=== PATIENT | female | born 1945 | race Hispanic/Latino ===

== ENCOUNTER 2018-10-03 12:22 | Inpatient (IN) | payer MEDICARE, BC ==
[2018-10-03 12:22] VITALS: BMI 33.0
[2018-10-03] MEDS ORDERED: Piperacillin/Tazobact 3.375 GM in Sodium Chloride 0.9% 100 ML IVPB STA (12:34)
--- NOTE | 2018-10-03 12:43 | ED PDOC ---
HPI: SOB/CHF/COPD Time Seen by Provider: 10/03/18 12:23 Chief Complaint (Nursing): Shortness Of Breath Chief Complaint (Provider): Labored respiration, hypotension History Per: EMS History/Exam Limitations: clinical condition Additional Complaint(s): 73yo female, brought to ER by EMS from home as patient was found to have labored respirations and hypotension upon arrival. Patient currently unable to verbalize complaints, and history obtained from EMS. per EMS, upon application of BIPAP, patient with more hypotension, no further medications given in field and patient brought to the ER. Patient is lethargic but responsive to verbal stimuli. Full HPI & ROS unavailable due to patient's condition. Past Medical History Reviewed: Historical Data, Nursing Documentation, Vital Signs Vital Signs: Last Vital Signs Temp 92.2 F L 10/03/18 12:24 Pulse 86 10/03/18 12:24 Resp 22 10/03/18 12:24 BP 102/65 10/03/18 12:36 Pulse Ox 94 L 10/03/18 12:24 - Medical History PMH: Anxiety, Arthritis, Depression, Gastritis, HTN, Pneumonia, Rheumatoid Arthritis, Schizophrenia Denies: CHF, COPD, HIV, Hypercholesterolemia, Hypothyroidism, Chronic Kidney Disease - Family History Family History: States: Unknown Family Hx - Home Medications Home Medications: Ambulatory Orders Medication Instructions Recorded Atorvastatin [Lipitor] 20 mg PO DAILY #0 tab 05/25/16 Sertraline [Zoloft] 50 mg PO HS #0 tab 05/25/16 SITagliptin [Januvia] 100 mg PO DAILY 06/07/16 Aspirin [Ecotrin] 81 mg PO DAILY 10/03/18 Metoprolol Succinate XL [Toprol XL] 12.5 mg PO DAILY 10/03/18 Pantoprazole Sodium [Protonix] 40 mg PO BID 10/03/18 metFORMIN [glucOPHAGE] 850 mg PO BID 10/03/18 risperiDONE [RisperDAL Tab] 0.5 mg PO Q12 10/03/18 - Allergies Allergies/Adverse Reactions: Allergies Allergy/AdvReac Type Severity Reaction Status Date / Time No Known Allergies Allergy Verified 05/26/16 15:43 Review of Systems Review Of Systems: ROS cannot be obtained secondary to pt's inabilty to answer questions. Respiratory: Positive for: Shortness of Breath Physical Exam - Reviewed Nursing Documentation Reviewed: Yes Vital Signs Reviewed: Yes (hypothermic) - Physical Exam Appears: Positive for: In Acute Distress Head Exam: Positive for: ATRAUMATIC, NORMAL INSPECTION, NORMOCEPHALIC Skin: Positive for: Normal Color Eye Exam: Positive for: Normal appearance Neck: Positive for: Supple Cardiovascular/Chest: Positive for: Regular Rate, Rhythm, Tachycardia Respiratory: Positive for: Rales (bilateral bases). Negative for: Wheezing Gastrointestinal/Abdominal: Positive for: Soft, Other (excoriations noted to inguinal and suprapubic area) Back: Positive for: Other (4cm sacral decubitus ulcer to the bone with surrounding erythema) Extremity: Positive for: Pedal Edema (3+ edema bilaterally). Negative for: Calf Tenderness Neurological/Psych: Positive for: Lethargic (lethargic but arousable to verbal stimuli). Negative for: Motor/Sensory Deficits ((+) able to move all extremities) - Laboratory Results Result Diagrams: 10/03/18 12:48 - ECG ECG: Positive for: Interpreted By Me, Viewed By Me ECG Rhythm: Positive for: Sinus Rhythm Interpretation Of ECG: flattened ST segments 2,3, AVF, V4-V6 Rate: 80 O2 Sat by Pulse Oximetry: 94 - Critical Care Total Time (In Min): 30 Documented Critical Care: Time excludes all time spent performint seperately tracey lable procedures Medical Decision Making Medical Decision Making: Patient presenting likely with severe sepsis; UTI due to indwelling schumacher vs. infected sacral decubitus ulcer Patient hypothermic in ER, placed on bairhugger. Patient is in no respiratory distress, placed on O2 via BIPAP and has O2 sat of 100%. Blood pressure noted 102/65, will give IV fluids judicuously IV vancomycin and IV zosyn initiated 1300 Lactate level 6.9 Code sepsis called [address] Treviño, and patient to be admitted due to Severe Sepsis, UTI, Sacaral decubitus, Hypothermia Discussed with Dr. Carmona for ICU Scribe Attestation: Documented by Luli Dooley, acting as a scribe for Gerald Harley MD Provider Scribe Attestation: All medical record entries made by the Scribe were at my direction and personally dictated by me. I have reviewed the chart and agree that the record accurately reflects my personal performance of the history, physical exam, medical decision making, and the department course for this patient. I have also personally directed, reviewed, and agree with the discharge instructions and disposition. Disposition - Clinical Impression Clinical Impression: Sacral decubitus ulcer, Pneumonia, Sepsis, UTI (urinary tract infection) - Patient ED Disposition Is Patient to be Admitted: Yes - Disposition Disposition Time: 12:54 Condition: GUARDED - Pt Status Changed To: Hospital Disposition Of: Inpatient - Admit Certification Admit to Inpatient:: After my assessment, the patient will require hospitalization for at least two midnights. This is because of the severity of symptoms shown, intensity of services needed, and/or the medical risk in this patient being treated as an outpatient. - POA Present On Arrival: Pressure Ulcer (Sacral decubitus)
[2018-10-03 12:57] LABS: VENOUS BLOOD GAS BASE EXCESS -15.5 mmol/L (0.0-2.0); VENOUS BLOOD GAS PCO2 31 mmHg (40-60); VENOUS BLOOD GAS PO2 53 mm/Hg (30-55); VENOUS BLOOD PH 7.18 (7.32-7.43)
[2018-10-03] MEDS ORDERED: Sodium Chloride 0.9% 1,000 ML IV STA (13:03)
[2018-10-03 13:15] LABS: BASO # 0.2 K/uL (0.0-0.2); BASO % 0.4 % (0.0-2.0); MEAN CELL VOLUME 91.4 fl (81.0-99.0); MEAN CORPUSCULAR HEMOGLOBIN 29.3 pg (27.0-31.0); MEAN CORPUSCULAR HGB CONC 32.1 g/dL (33.0-37.0); MEAN PLATELET VOLUME 7.6 fl (7.2-11.7); MONO # 0.6 K/uL (0.0-0.8); MONO % 1.2 % (0.0-10.0); NEUT # 46.8 K/uL (1.8-7.0); NEUT % 96.4 % (50.0-75.0); PLATELET COUNT 397 K/uL (130-400); RED CELL DISTRIBUTION WIDTH 16.2 % (11.5-14.5)
[2018-10-03] MEDS ORDERED: Piperacillin/Tazobact 3.375 gm Inj IVPB ONE (13:26)
[2018-10-03] MEDS ORDERED: Vancomycin 1 g Inj ONE (13:26)
[2018-10-03 13:27] LABS: WHITE BLOOD COUNT 48.4 K/uL (4.8-10.8)
[2018-10-03] MEDS: Sodium Chloride 0.9% 1,000 ML IV STA ×2 (13:31→13:44)
--- NOTE | 2018-10-03 13:34 | RAD ---
Date of service: 10/03/2018 HISTORY: cough COMPARISON: 05/20/2016 TECHNIQUE: 1 view obtained. FINDINGS: LUNGS: No active pulmonary disease. PLEURA: Minimal blunting of left costophrenic angle. Possible small pleural effusion. No right pleural effusion. CARDIOVASCULAR: No aortic atherosclerotic calcification present. Normal cardiac size. No pulmonary vascular congestion. OSSEOUS STRUCTURES: No significant abnormalities. VISUALIZED UPPER ABDOMEN: Normal. OTHER FINDINGS: None. IMPRESSION: Possible small left pleural effusion. Otherwise unremarkable.
[2018-10-03 13:36] LABS: ALB/GLOB RATIO 0.5 (1.0-2.1); CALCIUM 7.5 mg/dL (8.4-10.2)
[2018-10-03 14:16] LABS: ANISOCYTOSIS SLIGHT; BANDS 9 % (0-2); LYMPHOCYTE 1 % (20-50); MONOCYTE 2 % (0-10); NEUTROPHIL 88 % (42-75); OVALOCYTES SLIGHT; PLATELET ESTIMATE NORMAL (NORMAL); SCHISTOCYTES SLIGHT; TEARDROP CELLS SLIGHT; TOTAL CELLS COUNTED 100; TOXIC GRANULATION PRESENT
--- NOTE | 2018-10-03 14:57 | CT ---
Date of service: 10/03/2018 PROCEDURE: CT Abdomen and Pelvis without intravenous contrast HISTORY: r/o kidney stone COMPARISON: Not available TECHNIQUE: Without contrast.. Contrast dose: 0 Radiation dose: Total exam DLP = 1224.98 mGy-cm. This CT exam was performed using one or more of the following dose reduction techniques: Automated exposure control, adjustment of the mA and/or kV according to patient size, and/or use of iterative reconstruction technique. FINDINGS: LOWER THORAX: Extensive left lower lobe consolidation. Possibly due to atelectasis. Minimal right lower lobe compressive atelectasis secondary to pleural effusion. There is patchy infiltrate adjacent to the left hilum. Small left and moderate right pleural effusion. Small hiatal hernia. LIVER: Nodular hepatic contour consistent with cirrhosis. No mass. No biliary ductal dilatation. GALLBLADDER AND BILE DUCTS: Cholelithiasis. No mural thickening. PANCREAS: Unremarkable. No gross lesion or ductal dilatation. SPLEEN: Unremarkable. ADRENALS: Unremarkable. No mass. KIDNEYS AND URETERS: Multiple left renal calculi. There is a calculus in an extrarenal left renal pelvis measuring 2.1 cm in greatest dimension. Multiple calculi are seen in the lower pole left kidney, the largest measuring 8 mm in greatest dimension. There is a mid left renal calculus measuring 10 mm in greatest dimension. There is no hydronephrosis. There is no renal mass. There is no ureteral calculus. VASCULATURE: Unremarkable. No aortic aneurysm. There is atherosclerotic calcification of the abdominal aorta. BOWEL: There is mural thickening of the cecum and ascending colon. This may reflect a colitis. There is also mild nonspecific mural thickening of the inferior rectum. Transverse colon is unremarkable. The descending colon is suboptimally evaluated due to absent distension.. APPENDIX: Not identified. No secondary findings. PERITONEUM: Moderate ascites. LYMPH NODES: Unremarkable. No enlarged lymph nodes. BLADDER: Decompressed around Anne catheter balloon REPRODUCTIVE: Normal postmenopausal uterus BONES: No acute fracture. OTHER FINDINGS: None. IMPRESSION: Multiple left renal calculi as described. No evidence of hydronephrosis. No right renal calculus. No mass. No ureteral calculus. Ascites. Hepatic cirrhosis. Cholelithiasis. Right pleural effusion. Left lower lobe consolidation/atelectasis. Patchy left perihilar infiltrate. Possible colitis involving the cecum and ascending colon as well as the inferior rectum.
[2018-10-03 15:00] LABS: PLATELET CLUMPS PRESENT
--- NOTE | 2018-10-03 15:53 | RAD ---
Date of service: 10/03/2018 HISTORY: cough COMPARISON: 10/03/2018 TECHNIQUE: 1 view obtained. FINDINGS: LUNGS: Extensive opacity at left base and left perihilar. Possible pneumonia. Follow-up advised. Evaluation limited due to oblique positioning PLEURA: . CARDIOVASCULAR: No aortic atherosclerotic calcification present. Normal cardiac size. Right internal jugular central venous catheter noted. OSSEOUS STRUCTURES: No significant abnormalities. VISUALIZED UPPER ABDOMEN: Normal. OTHER FINDINGS: None. IMPRESSION: Left basilar/perihilar opacity. Possible pneumonia. Follow-up advised.
[2018-10-03 16:00] LABS: VENOUS BLOOD GAS BASE EXCESS -18.6 mmol/L (0.0-2.0); VENOUS BLOOD GAS PCO2 29 mmHg (40-60); VENOUS BLOOD GAS PO2 61 mm/Hg (30-55); VENOUS BLOOD PH 7.12 (7.32-7.43)
[2018-10-03] MEDS ORDERED: Meropenem 1 GM in Sodium Chloride 0.9% 100 ML IVPB ONE (16:48)
[2018-10-03] MEDS ORDERED: Sodium Chloride 0.9% 1,000 ML IV SCH ×2 (18:30→19:00)
[2018-10-03 18:31] LABS: CALCIUM 6.9 mg/dL (8.4-10.2)
[2018-10-03 18:37] LABS: ABG ALLEN TEST YES; ARTERIAL BLOOD GAS HCO3 8.9 mmol/L (21-28); ARTERIAL BLOOD GAS HEMOGLOBIN 12.6 g/dL (11.7-17.4); ARTERIAL BLOOD GAS O2 CAPACITY 17.1 mL/dL (16-24); ARTERIAL BLOOD GAS O2 CONTENT 16.6 ML/dL (15-23); ARTERIAL BLOOD GAS O2 SAT 97.2 % (95-98); ARTERIAL BLOOD GAS PCO2 25 mm/Hg (35-45); ARTERIAL BLOOD GAS PO2 83 mm/Hg (80-100); ARTERIAL BLOOD GAS TCO2 8.6 mmol/L (22-28)
[2018-10-03] MEDS ORDERED: Sodium Bicarbonate 7.5% (0.9 MEQ/ML) 50ML INJ IV ONE (18:37)
[2018-10-03] MEDS ORDERED: WATER IV SCH (18:45)
[2018-10-03] MEDS ORDERED: DEXTROSE 5% IV SCH (18:45)
[2018-10-03] MEDS ORDERED: SODIUM BICARBONATE IV SCH (18:45)
[2018-10-03] MEDS ORDERED: Meropenem 500 MG in Sodium Chloride 0.9% 100 ML IVPB SCH (18:45)
--- NOTE | 2018-10-03 18:55 | CP.PCM.PN ---
Subjective - Date & Time of Evaluation Date of Evaluation: 10/03/18 Time of Evaluation: 18:44 - Subjective Subjective: I D NOTE LEUKOCYTOSIS SEPSIS RENAL INSUFFICIENCY START RX c CLINDAMYCIN/MEROPENEM/UNASYN AWAIT CULTURES RESULTS Objective - Vital Signs/Intake and Output Vital Signs (last 24 hours): Temp Pulse Resp BP Pulse Ox 91.6 F L 85 27 H 72/28 L 95 10/03/18 17:00 10/03/18 17:00 10/03/18 17:00 10/03/18 17:00 10/03/18 17:00 Intake and Output: 10/03/18 10/03/18 06:59 18:59 Intake Total 700 Balance 700 - Medications Medications: Current Medications Sodium Chloride (Sodium Chloride 0.9%) 1,000 mls @ 150 mls/hr IV .Q6H40M STA Stop: 10/03/18 19:12 Last Admin: 10/03/18 13:44 Dose: 150 mls/hr Norepinephrine Bitartrate 4 mg (/ Sodium Chloride) 254 mls @ 9.53 mls/hr IV .Q24H IMELDA; Protocol Last Titration: 10/03/18 18:20 Dose: 20 mcg/min, 76.2 mls/hr Sodium Chloride (Sodium Chloride 0.9%) 1,000 mls @ 999 mls/hr IV .Q1H1M IMELDA Stop: 10/04/18 18:27 Ampicillin Sodium/Sulbactam (Sodium 1.5 gm/ Sodium Chloride) 100 mls @ 100 mls/hr IVPB Q12 IMELDA; Protocol Stop: 10/08/18 21:01 Meropenem 500 mg/ Sodium (Chloride) 100 mls @ 100 mls/hr IVPB Q24H IMELDA; Protocol Sodium Bicarbonate 48 meq/ (Dextrose) 1,048 mls @ 50 mls/hr IV .[id number] IMELDA Stop: 10/04/18 18:39 Clindamycin Phosphate 600 mg/ (Sodium Chloride) 54 mls @ 54 mls/hr IVPB Q12 IMELDA; Protocol Levothyroxine Sodium (Levothyroxine) 25 mcg IVP DAILY IMELDA Sodium Bicarbonate (Sodium Bicarbonate 7.5% (0.9 Meq/Ml) 50 Ml) 44.6 meq IV ONCE ONE Stop: 10/03/18 18:38 - Labs Labs: 10/03/18 12:48 10/03/18 17:34
--- NOTE | 2018-10-03 20:18 | CARD ---
APPROVED REPORT Date of service: 10/03/2018 EKG Measurement Heart [id number] <Conclusion> Normal sinus rhythm Low voltage QRS Nonspecific T wave abnormality Prolonged QT Abnormal ECG
[2018-10-03] MEDS ORDERED: Sodium Bicarbonate (8.4%) 50 Meq Syringe IV ONE (20:30)
[2018-10-03] MEDS: Clindamycin 600mg/50ml D5W 600 MG/50 ML VIAL IVPB SCH (20:56)
[2018-10-03] MEDS ORDERED: Albuterol-Ipratrop 3 mg / 0.5 (3 ml) UD INH STA (22:47)
[2018-10-03] MEDS ORDERED: Albuterol-Ipratrop 3 mg / 0.5 (3 ml) UD INH PRN (22:47)
[2018-10-04 00:01] LABS: ABG ALLEN TEST YES; ARTERIAL BLOOD GAS HCO3 6.6 mmol/L (21-28); ARTERIAL BLOOD GAS HEMOGLOBIN 12.4 g/dL (11.7-17.4); ARTERIAL BLOOD GAS O2 CONTENT 16.6 ML/dL (15-23); ARTERIAL BLOOD GAS O2 SAT 97.9 % (95-98); ARTERIAL BLOOD GAS PCO2 27 mm/Hg (35-45); ARTERIAL BLOOD GAS PO2 96 mm/Hg (80-100); ARTERIAL BLOOD GAS TCO2 7.5 mmol/L (22-28)
[2018-10-04] MEDS ORDERED: Sodium Bicarbonate (8.4%) 50 Meq Syringe IVP ONE ×3 (00:08→07:32)
[2018-10-04] MEDS ORDERED: DEXTROSE 5% IV SCH (00:14)
[2018-10-04] MEDS ORDERED: SODIUM BICARBONATE IV SCH (00:14)
[2018-10-04] MEDS ORDERED: WATER IV SCH (00:14)
--- NOTE | 2018-10-04 00:22 | CP.PCM.CON ---
History of Present Illness - History of Present Illness History of Present Illness: 73 yo female candis in with profound hypothermia and sepsis. has deep decubiti. Review of Systems - Review of Systems Systems not reviewed;Unavailable: Altered Mental Status Past Patient History - Infectious Disease Hx of Infectious Diseases: None - Past Medical History & Family History Past Medical History?: Yes - Past Social History Smoking Status: Never Smoked - CARDIAC Hx Congestive Heart Failure: No Hx Hypercholesterolemia: No Hx Hypertension: Yes - PULMONARY Hx Asthma: Yes Hx Chronic Obstructive Pulmonary Disease (COPD): No Hx Pneumonia: Yes - NEUROLOGICAL HX Cerebrovascular Accident: No - HEENT Hx HEENT Problems: No - RENAL Hx Chronic Kidney Disease: No - ENDOCRINE/METABOLIC Hx Hypothyroidism: No - HEMATOLOGICAL/ONCOLOGICAL Hx AIDS: No Hx Human Immunodeficiency Virus (HIV): No - INTEGUMENTARY Hx Dermatological Problems: Yes Other/Comment: perineal excoriation - MUSCULOSKELETAL/RHEUMATOLOGICAL Hx Arthritis: Yes Hx Falls: Yes Hx Rheumatoid Arthritis: Yes - GASTROINTESTINAL Hx Gastritis: Yes - GENITOURINARY/GYNECOLOGICAL Hx Genitourinary Disorders: No Hx Urinary Tract Infection: Yes - PSYCHIATRIC Hx Anxiety: Yes Hx Depression: Yes Hx Schizophrenia: Yes Hx Substance Use: No - SURGICAL HISTORY Hx Surgeries: Yes Hx Cataract Extraction: Yes Hx Joint Replacement: Yes (bilateral TKR) Hx Orthopedic Surgery: Yes Other/Comment: bilateral knee surgery - ANESTHESIA Hx Anesthesia: Yes Hx Anesthesia Reactions: No Hx Malignant Hyperthermia: No Meds Allergies/Adverse Reactions: Allergies Allergy/AdvReac Type Severity Reaction Status Date / Time No Known Allergies Allergy Verified 05/26/16 15:43 - Medications Medications: Current Medications Albuterol/Ipratropium (Duoneb 3 Mg/0.5 Mg (3 Ml) Ud) 3 ml INH RQID IMELDA Albuterol/Ipratropium (Duoneb 3 Mg/0.5 Mg (3 Ml) Ud) 3 ml INH RQ6 PRN PRN Reason: Shortness of Breath Norepinephrine Bitartrate 4 mg (/ Sodium Chloride) 254 mls @ 9.53 mls/hr IV .Q24H IMELDA; Protocol Last Titration: 10/03/18 23:08 Dose: 20 mcg/min, 76.2 mls/hr Sodium Chloride (Sodium Chloride 0.9%) 1,000 mls @ 999 mls/hr IV .Q1H1M IMELDA Stop: 10/04/18 18:27 Last Admin: 10/03/18 18:00 Dose: 999 mls/hr Ampicillin Sodium/Sulbactam (Sodium 1.5 gm/ Sodium Chloride) 100 mls @ 100 mls/hr IVPB Q12 IMELDA; Protocol Stop: 10/08/18 21:01 Last Admin: 10/03/18 21:00 Dose: 100 mls/hr Meropenem 500 mg/ Sodium (Chloride) 100 mls @ 100 mls/hr IVPB Q24H IMELDA; Protocol Last Admin: 10/03/18 19:42 Dose: Not Given Clindamycin Phosphate (Cleocin 600mg/50ml D5w) 600 mg in 50 mls @ 50 mls/hr IVPB Q12 IMELDA; Protocol Last Admin: 10/03/18 20:56 Dose: 50 mls/hr Sodium Chloride (Sodium Chloride 0.9%) 1,000 mls @ 100 mls/hr IV .Q10H IMELDA Stop: 10/04/18 18:55 Sodium Bicarbonate 48 meq/ (Dextrose) 1,048 mls @ 75 mls/hr IV .[id number] [facility] Stop: 10/04/18 18:39 Levothyroxine Sodium (Levothyroxine) 25 mcg IVP DAILY@0630 IMELDA Physical Exam - Constitutional Appears: Older Than Stated Age - Head Exam Head Exam: ATRAUMATIC - Eye Exam Eye Exam: PERRL - ENT Exam ENT Exam: Normal Exam - Respiratory Exam Respiratory Exam: NORMAL BREATHING PATTERN - Cardiovascular Exam Cardiovascular Exam: REGULAR RHYTHM - GI/Abdominal Exam GI & Abdominal Exam: Distended, Normal Bowel Sounds Results - Vital Signs Recent Vital Signs: Last Vital Signs Temp 91.9 F L 10/03/18 19:00 Pulse 95 H 10/03/18 23:06 Resp 26 H 10/03/18 19:00 BP 93/39 L 10/03/18 19:00 Pulse Ox 28 L 10/03/18 19:00 - Labs Result Diagrams: 10/03/18 12:48 10/03/18 17:34 Labs: Laboratory Results - last 24 hr 10/03/18 10/03/18 10/03/18 12:32 12:34 12:48 WBC 48.4 H* D RBC 4.10 Hgb 12.0 Hct 37.5 MCV 91.4 D MCH 29.3 MCHC 32.1 L RDW 16.2 H Plt Count 397 MPV 7.6 Neut % (Auto) 96.4 H Lymph % (Auto) 2.0 L Tama % (Auto) 1.2 Eos % (Auto) 0.0 Baso % (Auto) 0.4 Neut # (Auto) 46.8 H Lymph # (Auto) 1.0 Tama # (Auto) 0.6 Eos # (Auto) 0.0 Baso # (Auto) 0.2 Neutrophils % (Manual) 88 H Band Neutrophils % 9 H Lymphocytes % (Manual) 1 L Monocytes % (Manual) 2 Toxic Granulation Present Platelet Estimate Normal Plt Clumps, EDTA Present Anisocytosis (manual) Slight Tear Drop Cells Slight Ovalocytes Slight Schistocytes Slight pCO2 pO2 53 HCO3 ABG pH ABG Total CO2 ABG O2 Saturation ABG O2 Content ABG Base Excess ABG Hemoglobin ABG Carboxyhemoglobin POC ABG HHb (Measured) ABG Methemoglobin ABG O2 Capacity Laz Test VBG pH 7.18 L* VBG pCO2 31 L VBG HCO3 12.5 VBG Total CO2 12.6 L VBG O2 Sat (Calc) 86.8 H VBG Base Excess -15.5 L VBG Potassium 4.9 A-a O2 Difference Hgb O2 Saturation Sodium 127.0 L Chloride 102.0 Glucose 110 H Lactate 6.6 H* Vent Mode Mechanical Rate FiO2 21.0 Inspiratory BiPAP Expiratory BiPAP Blood Gas Comments Vbg Crit Value Called To Nataliya rivera r.n. Crit Value Called By Gabby Crit Value Read Back Y Blood Gas Notified Time 1256 Potassium Carbon Dioxide Anion Gap BUN Creatinine Est GFR ( Amer) Est GFR (Non-Af Amer) POC Glucose (mg/dL) 111 H Random Glucose Lactic Acid Calcium Phosphorus Magnesium Total Bilirubin AST ALT Alkaline Phosphatase Total Protein Albumin Globulin Albumin/Globulin Ratio Free T4 TSH 3rd Generation Venous Blood Potassium 4.9 10/03/18 10/03/18 10/03/18 12:48 15:22 15:51 WBC RBC Hgb Hct MCV MCH MCHC RDW Plt Count MPV Neut % (Auto) Lymph % (Auto) Tama % (Auto) Eos % (Auto) Baso % (Auto) Neut # (Auto) Lymph # (Auto) T[place] # (Auto) Eos # (Auto) Baso # (Auto) Neutrophils % (Manual) Band Neutrophils % Lymphocytes % (Manual) Monocytes % (Manual) Toxic Granulation Platelet Estimate Plt Clumps, EDTA Anisocytosis (manual) Tear Drop Cells Ovalocytes Schistocytes pCO2 pO2 61 H HCO3 ABG pH ABG Total CO2 ABG O2 Saturation ABG O2 Content ABG Base Excess ABG Hemoglobin ABG Carboxyhemoglobin POC ABG HHb (Measured) ABG Methemoglobin ABG O2 Capacity Laz Test VBG pH 7.12 L* VBG pCO2 29 L VBG HCO3 10.0 VBG Total CO2 10.3 L VBG O2 Sat (Calc) 89.6 H VBG Base Excess -18.6 L VBG Potassium A-a O2 Difference Hgb O2 Saturation Sodium 130 L 188.0 H* Chloride 106 124.0 H Glucose 102 Lactate 6.7 H* Vent Mode Mechanical Rate FiO2 100.0 Inspiratory BiPAP Expiratory BiPAP Blood Gas Comments Crit Value Called To shama Harley md Crit Value Called By Kenyatta baugh Crit Value Read Back Y Blood Gas Notified Time 1559 Potassium 4.9 Carbon Dioxide 10 L* D Anion Gap 19 BUN 33 H Creatinine 2.0 H Est GFR ( Amer) 30 Est GFR (Non-Af Amer) 24 POC Glucose (mg/dL) Random Glucose 107 H Lactic Acid Calcium 7.5 L Phosphorus 3.3 Magnesium 1.1 L Total Bilirubin 0.4 AST 109 H ALT 30 Alkaline Phosphatase 537 H Total Protein 6.0 L Albumin 2.0 L D Globulin 3.9 Albumin/Globulin Ratio 0.5 L Free T4 TSH 3rd Generation 25.50 H Venous Blood Potassium 10/03/18 10/03/18 10/03/18 17:32 17:34 17:34 WBC RBC Hgb Hct MCV MCH MCHC RDW Plt Count MPV Neut % (Auto) Lymph % (Auto) Tama % (Auto) Eos % (Auto) Baso % (Auto) Neut # (Auto) Lymph # (Auto) Tama # (Auto) Eos # (Auto) Baso # (Auto) Neutrophils % (Manual) Band Neutrophils % Lymphocytes % (Manual) Monocytes % (Manual) Toxic Granulation Platelet Estimate Plt Clumps, EDTA Anisocytosis (manual) Tear Drop Cells Ovalocytes Schistocytes pCO2 pO2 HCO3 ABG pH ABG Total CO2 ABG O2 Saturation ABG O2 Content ABG Base Excess ABG Hemoglobin ABG Carboxyhemoglobin POC ABG HHb (Measured) ABG Methemoglobin ABG O2 Capacity Laz Test VBG pH VBG pCO2 VBG HCO3 VBG Total CO2 VBG O2 Sat (Calc) VBG Base Excess VBG Potassium A-a O2 Difference Hgb O2 Saturation Sodium 133 Chloride 109 H Glucose Lactate Vent Mode Mechanical Rate FiO2 Inspiratory BiPAP Expiratory BiPAP Blood Gas Comments Crit Value Called To Crit Value Called By Crit Value Read Back Blood Gas Notified Time Potassium 4.5 Carbon Dioxide 11 L* Anion Gap 18 BUN 29 H Creatinine 1.8 H Est GFR ( Amer) 33 Est GFR (Non-Af Amer) 28 POC Glucose (mg/dL) 114 H Random Glucose 100 Lactic Acid Calcium 6.9 L Phosphorus Magnesium Total Bilirubin AST ALT Alkaline Phosphatase Total Protein Albumin Globulin Albumin/Globulin Ratio Free T4 0.85 TSH 3rd Generation Venous Blood Potassium 10/03/18 10/03/18 10/03/18 17:34 18:32 23:53 WBC RBC Hgb Hct MCV MCH MCHC RDW Plt Count MPV Neut % (Auto) Lymph % (Auto) Tama % (Auto) Eos % (Auto) Baso % (Auto) Neut # (Auto) Lymph # (Auto) [place] # (Auto) Eos # (Auto) Baso # (Auto) Neutrophils % (Manual) Band Neutrophils % Lymphocytes % (Manual) Monocytes % (Manual) Toxic Granulation Platelet Estimate Plt Clumps, EDTA Anisocytosis (manual) Tear Drop Cells Ovalocytes Schistocytes pCO2 25 L 27 L pO2 83 96 HCO3 8.9 L* 6.6 L* ABG pH 7.10 L* 7.00 L* ABG Total CO2 8.6 L 7.5 L ABG O2 Saturation 97.2 97.9 ABG O2 Content 16.6 16.6 ABG Base Excess -20.4 L -23.4 L ABG Hemoglobin 12.6 12.4 ABG Carboxyhemoglobin 2.2 H 2.0 H POC ABG HHb (Measured) 2.7 2.0 ABG Methemoglobin 1.8 1.5 ABG O2 Capacity 17.1 17.0 Laz Test Yes Yes VBG pH VBG pCO2 VBG HCO3 VBG Total CO2 VBG O2 Sat (Calc) VBG Base Excess VBG Potassium A-a O2 Difference 599.0 583.0 Hgb O2 Saturation 93.3 L 94.5 L Sodium Chloride Glucose Lactate Vent Mode Bipap Mechanical Rate 14 FiO2 100.0 100.0 Inspiratory BiPAP 12 Expiratory BiPAP 7 Blood Gas Comments Crit Value Called To Hima alex Crit Value Called By 1465 [id number] Crit Value Read Back Y Y Blood Gas Notified Time 183 1 Potassium Carbon Dioxide Anion Gap BUN Creatinine Est GFR ( Amer) Est GFR (Non-Af Amer) POC Glucose (mg/dL) Random Glucose Lactic Acid 6.1 H* Calcium Phosphorus Magnesium Total Bilirubin AST ALT Alkaline Phosphatase Total Protein Albumin Globulin Albumin/Globulin Ratio Free T4 TSH 3rd Generation Venous Blood Potassium - Imaging and Cardiology CT scan - abdomen Status: Report reviewed by me Assessment & Plan (1) Elevated liver enzymes Assessment and Plan: 73 yo female admitted with septicemia. CT shows ascites and cirrhosis though platelet count is normal . Evidence of cholelithiasis but not cholecystitis. Alk phos elevated much more than other LFTs raiising the question of possible osteomyelitis. Status: Acute - Date & Time Date: 10/03/18 Time: 17:00
[2018-10-04] MEDS ORDERED: Lidocaine 1% Inj (20ml) ONE (02:07)
--- NOTE | 2018-10-04 03:29 | PN ---
DATE: 10/03/2018 TIME: 6:43 p.m. SUBJECTIVE: A 73-year-old female, admitted with shortness of breath, leukocytosis, high anion gap metabolic acidosis with elevated lactate, bilateral pneumonia, sacral decubitus, liver cirrhosis and cholelithiasis, status post 2.5 L of normal saline. PHYSICAL EXAMINATION: CURRENT VITAL SIGNS: Temperature 91.6 on Tanika Hugger, heart rate 85, blood pressure 83/44, mean arterial pressure 58, respiratory rate 27, pulse oximetry 98% on 100% nonrebreather. CARDIOVASCULAR: Rate and rhythm regular. S1, S2 normal. No audible murmur. No gallop. CHEST: Nontender. Bilateral breath sounds diminished in intensity. Fine crepitations at the bases. EXTREMITIES: Capillary refill less than 2 seconds. SKIN: Warm to touch. Peripheral edema present. LABORATORY DATA: ABG; pH 7.10, pCO2 of 25, pO2 of 83, saturation 97.2. PLAN: Sodium bicarbonate 1 ampule IV push followed by 2 ampules in 1 L, D5W 250 mL per hour. Continue meropenem, status post vancomycin and Zosyn. ID consult, followup. Closely monitor for deterioration, intubate as needed. On Levophed, titrate to maintain mean arterial pressure 65 or above. Monitor urine output. Hima Carmona MD
--- NOTE | 2018-10-04 04:33 | PN ---
DATE: 10/03/2018 CRITICAL CARE PROGRESS NOTE LOCATION: The patient in ICU bed 425. TIME SPENT: 45 minutes. SUBJECTIVE: The patient is seen, evaluated at the bedside. Past medical, surgical, family, social history reviewed. A 73-year-old female with anxiety, arthritis, depression, gastritis, hypertension, pneumonia, rheumatoid arthritis, schizophrenia status post bilateral knee replacement, bedridden at home. She was brought to emergency room complaining of labored respiration. On arrival, the patient's blood pressure was noted, vital signs showed a temperature of 92.2, heart rate 86, respiratory rate 22, blood pressure 102/65, pulse oximetry 94%. Lab data showed leukocytosis, high anion gap metabolic acidosis with elevated lactate. The patient was given 2 liters of IV fluid with some improvement in blood pressure. Started on Levophed, admitted to ICU for further evaluation. Review of systems, noted. The patient is bedridden, has sacral decubitus being addressed by wound care team, has been stable for the last 2-3 weeks, noted to have smearing and soiling of the wound from urine and feces. So, the patient has an indwelling Anne catheter. MEDICATIONS: At home include aspirin 81 mg daily, metformin 850 mg twice daily, metoprolol 12.5 mg p.o. daily, Protonix 40 mg b.i.d., Risperdal 0.5 mg every 12 hours, sitagliptin 100 mg p.o. daily, atorvastatin 20 mg p.o. daily and Zoloft 50 mg p.o. at bedtime. ALLERGIES: NOT DOCUMENTED. FAMILY HISTORY: Noncontributory. SOCIAL HISTORY: Known smoker, known EtOH. No recreational drug use. PHYSICAL EXAMINATION: VITAL SIGNS: Temperature 91.3, heart rate of 78, blood pressure now 140/100 on Levophed, respiratory rate 20, saturating 98%, on nonrebreather. Intake and output to be documented. Weight 150 pounds. HEAD, EYES, EARS, NOSE AND THROAT: Pupils are 2-3 mm reactive. Sclerae white. Conjunctivae pale. NECK: Supple. Trachea is central. CHEST: Bilateral breath sounds, diminished in intensity. Fine crepitations at the bases. HEART: Rhythm regular. S1, S2 normal. ABDOMEN: Bowel sounds present and soft, distended. EXTREMITIES: Scar from the previous surgery on the knee. Large sacral decubiti stage II to III. DP palpable, reduced in intensity. NEUROLOGIC: Alert and awake, slow to respond. Moves all four extremities. LABORATORY DATA: WBC 48.4, hemoglobin 12, hematocrit 37.5, platelet count of 397, neutrophils 96.4, lymphocytes 72, monocytes 1.2. SMA-7: Sodium 130, potassium 4.9, chloride 106, CO2 of 10, BUN 33, creatinine 2, random glucose 107, calcium 7.5, phosphorus 3.3, magnesium 1.1, total bilirubin 0.4, AST 109, ALT 30, alkaline phosphatase 537, total protein 6, albumin 2. TSH 25.5. Microbiology, pending. Chest x-ray, extensive opacity at the left base, left perihilar. Abdomen and pelvis CT, multiple left renal calculi, no evidence of hydronephrosis, no right renal calculus, no mass. No ureteral calculus, ascites, hepatic cirrhosis, cholelithiasis, right pleural effusion, left lower lobe consolidation/atelectasis, patchy left perihilar infiltrate, possible colitis involving the cecum and ascending colon as well as in the inferior rectum. IMPRESSION: A 73-year-old female, bedridden with a history significant for diabetes mellitus type 2, hypertension, hyperlipidemia, schizophrenia, status post bilateral knee replacement, admitted with shortness of breath. 1. Neurologic: Septic metabolic encephalopathy. 2. Pulmonary: Bilateral pneumonia with hypoxic respiratory insufficiency, cardiac hypotension likely septic, superimposed hypovolemia. 3. Endocrine: Possible hypothyroidism with elevated thyroid-stimulating hormone. We will repeat T3-T4. History of diabetes mellitus type 2, hold by mouth medications. Accu-Chek with regular insulin coverage. Nothing by mouth for impending respiratory failure and need for intubation. 4. Renal: Vrztc-[id number] renal insufficiency, intravenous hydration in place. Follow urine electrolytes, renal consult. 5. Gastrointestinal: Elevated liver enzymes. Cholelithiasis. Possible hepatic cirrhosis. Hypoalbuminemia. 6. Infectious Disease: Multiple source, likely pneumonia, sacral decubitus, rule out intra-abdominal source, status post vancomycin and Zosyn. We will add dose of meropenem. Infectious disease consult requested. Prognosis is guarded. We will discuss with family updated severity of her presentation. Hima Carmona MD [facility] # [id number]
[2018-10-04 05:49] LABS: BASO # 0.1 K/uL (0.0-0.2); BASO % 0.1 % (0.0-2.0); EOS # 0.4 K/uL (0.0-0.7); EOS % 0.8 % (0.0-4.0); HEMOGLOBIN 11.2 g/dL (12.0-16.0); LYMPH # 1.2 K/uL (1.0-4.3); LYMPH % 2.3 % (20.0-40.0); MEAN CELL VOLUME 92.2 fl (81.0-99.0); MEAN CORPUSCULAR HEMOGLOBIN 29.1 pg (27.0-31.0); MEAN CORPUSCULAR HGB CONC 31.5 g/dL (33.0-37.0); MEAN PLATELET VOLUME 7.6 fl (7.2-11.7); MONO # 0.7 K/uL (0.0-0.8); MONO % 1.4 % (0.0-10.0); NEUT % 95.4 % (50.0-75.0); NRBC % 0.3 % (0.0-0.0); RBC 3.87 Mil/uL (3.80-5.20); RED CELL DISTRIBUTION WIDTH 16.6 % (11.5-14.5)
[2018-10-04 06:02] LABS: WHITE BLOOD COUNT 51.4 K/uL (4.8-10.8)
[2018-10-04] MEDS ORDERED: Levothyroxine 100 mcg (0.1 mg) Inj IVP SCH (06:30)
[2018-10-04] MEDS ORDERED: Sodium Chloride 0.9% 500 ML IV ONE (06:38)
[2018-10-04] MEDS ORDERED: Phenylephrine 30 MG in Sodium Chloride 0.9% 250 ML IV SCH ×2 (06:45→08:24)
[2018-10-04 06:46] LABS: CALCIUM 6.5 mg/dL (8.4-10.2)
[2018-10-04] MEDS ORDERED: Midazolam 2 MG/2 ML VIAL ONE (06:57)
[2018-10-04 06:59] LABS: ABG ALLEN TEST YES; ARTERIAL BLOOD GAS HCO3 6.5 mmol/L (21-28); ARTERIAL BLOOD GAS O2 SAT 70.8 % (95-98); ARTERIAL BLOOD GAS PCO2 62 mm/Hg (35-45); ARTERIAL BLOOD GAS PH 6.89 (7.35-7.45); ARTERIAL BLOOD GAS PO2 43 mm/Hg (80-100); ARTERIAL BLOOD GAS TCO2 13.8 mmol/L (22-28)
[2018-10-04] MEDS ORDERED: Midazolam 2 MG/2 ML VIAL IV ONE (07:05)
[2018-10-04] MEDS ORDERED: Etomidate 20 mg/10ml Inj IV ONE ×2 (07:09→07:27)
[2018-10-04] MEDS ORDERED: Succinylcholine 200 mg/10 ml Inj IV ONE ×2 (07:12→07:27)
[2018-10-04] MEDS ORDERED: Levothyroxine 200 mcg (0.2 mg) Inj IVP STA (07:28)
[2018-10-04] MEDS ORDERED: Sodium Bicarbonate 8.4% 150 MEQ in Dextrose 5% In Water 1,000 ML IV SCH (07:30)
--- NOTE | 2018-10-04 07:34 | PCM.PROC ---
Procedures Attestation:: I certify that I have explained the specified Operation(s) or Procedure(s), risks, benefits and reasonable alternatives to the Patient and/or other person responsible. The opportunity was given to ask questions and all questions answered - Intubation Time Out Performed: Yes Sedative: Etomidate Paralytic: Rocuronimum Laryngoscope: Eugenia ET Tube Size: 8.0 ET Tube Secured Locarion: Teeth ET Tube Placement Confirmation: Visualized Passing Through Cords, Breath Sounds Equal Bilaterally, No Breath Sounds Over Epigastrum, Confirmation w/Capnometry Patient Tolerated Procedure: No Complications Procedure Immediate Complications: None
[2018-10-04] MEDS: Albuterol-Ipratrop 3 mg / 0.5 (3 ml) UD INH SCH ×2 (08:02→11:24)
--- NOTE | 2018-10-04 08:16 | CARD ---
APPROVED REPORT Date of service: 10/04/2018 EKG Measurement Heart [id number] <Conclusion> Sinus rhythm with premature atrial complexes Low voltage QRS Cannot rule out Inferior infarct, age undetermined Possible Anterolateral infarct, age undetermined Abnormal ECG
--- NOTE | 2018-10-04 08:38 | PN ---
DATE: 10/03/2018 CRITICAL CARE PROGRESS NOTE LOCATION: The patient in ICU, bed 424. TIME SPENT: 35 minutes. SUBJECTIVE: The patient is seen and evaluated at the bedside. Past medical, surgical, family and social history reviewed. A 89-year-old male with medical history significant for chronic obstructive pulmonary disease, pulmonary fibrosis, on home oxygen, congestive heart failure, post-traumatic stress disorder, anxiety, admitted with hypercapnic hypoxic respiratory failure, currently on BiPAP, overnight afebrile, low to normal systolic blood pressure, on Levophed. Telemetry, sinus tachy, respiratory rate 30 to 35, saturation 99% on BiPAP 20/9 with rate of 20. Alert, awake, follows commands appropriate. Had a lengthy discussion regarding his plan of care. The patient agrees with intubation as needed, if not controlled on the BiPAP. PHYSICAL EXAMINATION: VITAL SIGNS: Temperature 98.9, heart rate 107, blood pressure 105/61. Intake 758, output 1300, negative balance 542. Weight 171 pounds. HEAD, EYES, EARS, NOSE, AND THROAT: Pupils reactive, conjunctivae pink, sclerae white. NECK: Supple. Trachea central. CHEST: Bilateral inspiratory crackles. ABDOMEN: Bowel sounds present. Soft. EXTREMITIES: No clubbing, cyanosis. Trace edema. NEUROLOGIC: Nonfocal. LABORATORY DATA: WBC 8.9, hemoglobin 12.5, hematocrit 12.5, platelet count of 134. ABG; pH 7.27, pCO2 82, pO2 122, saturation 99.3 on IPAP 29 with FiO2 of 40%. SMA-7: Sodium 140, potassium 5, chloride 97, CO2 of 34, blood urea nitrogen 42, creatinine 1.3, random glucose 108, calcium 8.7, phosphorus 5.8, magnesium 1.9. AST 16, ALT 23, alkaline phosphatase 49, total protein 6.7, albumin 3.8. Urinalysis negative. Microbiology: Blood culture positive for gram-negative rods. Chest, abdomen, and pelvis done on 10/02/2018; pulmonary interstitial fibrosis, consolidation with multiple cavitation in the upper lobe, several of these cavities with intracavitary masses likely representing Aspergillus colonization, multiple small low attenuation hepatic masses of uncertain significance, rule out metastatic disease, marked mural thickening of the cecum with mural thickening also of the ascending colon, splenic flexure and sigmoid colon. Findings consistent with possible colitis, rule-out sacral malignancy. IMPRESSION: A 89-year-old male with a chronic obstructive pulmonary disease, pulmonary fibrosis, congestive heart failure, admitted with hypercapnic respiratory failure. 1. Neurologic: Alert and awake, oriented to name, place and time. 2. Pulmonary: Acute hypercapnic respiratory failure, on bilevel positive airway pressure, DuoNeb and steroids tolerating, and partial pressure of carbon dioxide remains stable. Closely monitor for further worsening and need for mechanical ventilation. 3. Cardiovascular: Acute exacerbation of chronic congestive heart failure with elevated brain natriuretic peptide and hypotension, dependent on Levophed. Blood culture positive for gram-negative rods the gram-negative bacteremia. 4. Hematology: Leukopenia improved. 5. Renal: No prerenal azotemia. No electrolyte abnormalities. No acute issues. 6. Infectious disease: Gram-negative bacteremia, Infectious Disease pending. start the patient on vancomycin. The patient currently on vancomycin, add cefepime. Infectious Disease consult requested. Continue deep venous thrombosis prophylaxis, on Lovenox. Gastrointestinal prophylaxis not currently indicated. Continue Anne for strict intake and output. Code status: FULL CODE. Hima Carmona MD
[2018-10-04] MEDS ORDERED: Levothyroxine 100 mcg (0.1 mg) Inj IVP STA (08:45)
--- NOTE | 2018-10-04 08:58 | RAD ---
Date of service: 10/04/2018 HISTORY: intubation COMPARISON: 10/04/2018 and 10/03/2018 TECHNIQUE: 1 view obtained. FINDINGS: LUNGS: Interval complete opacification left hemithorax with left hemithoracic volume loss.-atelectasis is inferred The endotracheal tube is in the right mainstem bronchus. Prior to completing this dictation, these findings were called 1st to patient information and thereafter to the ICU/CCU multiple times in an attempt to reach someone in the ICU Finally Dr. Bhatt was reached and was able to take this message of these urgent findings at 3:2018 at 8 40 a.m. Right perihilar to right mid lung zone coalescent airspace opacity-atelectasis and/or infiltrate are some considerations. These right lung findings are interval changes. PLEURA: No pneumothorax apparent. A small concomitant left pleural effusion cannot be excluded. CARDIOVASCULAR: There is presence of aortic atherosclerotic calcification on x-ray. Cardiac size difficult to assess on this exam previously appearing borderline enlarged.. Concomitant pulmonary vascular congestion possible. Right internal jugular vein central line inserted tip in right atrium. Consider repositioning more proximally OSSEOUS STRUCTURES: Generalized osteopenia. VISUALIZED UPPER ABDOMEN: Normal. OTHER FINDINGS: None. IMPRESSION: Interval endotracheal tube insertion with tip in right mainstem bronchus-recommend retraction 78 cm. As noted above prior to completing this dictation, these findings were directly discussed with Dr. Bhatt. Interval right perihilar to right mid lung zone airspace opacity-atelectasis and/or infiltrate with or without concomitant pulmonary venous congestion-are favored considerations. Right internal jugular line tip in right atrium as discussed above. Critical result assignment given.
[2018-10-04] MEDS ORDERED: Sodium Bicarbonate 7.5% (0.9 MEQ/ML) 50ML INJ IV ONE (09:00)
[2018-10-04] MEDS ORDERED: Hydrocortisone- 100 MG in Sodium Chloride 0.9% 100 ML IV SCH (09:00)
[2018-10-04 10:23] VITALS: RESP 12
[2018-10-04 10:26] VITALS: BP 0/0
--- NOTE | 2018-10-04 10:30 | CP.CCUPN ---
CCU Subjective - Physician Review Subjective (Free Text): Events over the past 24H reviewed. Required Oral intubation and MV support this AM for hypoxemia, refractory shock and persistent severe acidosis. Remains Hypotensive on max doses of Levophed and Phenylephrine, just resuscitated from bradycardic episode with HR into the 40s and loss of palpable pulses. Comatose, GCS 3T, breathing 12 on AC 12, 100% oxygen with SPo2 unobtainable, SBP 60s, HR post resuscitation in A Fib with rate 110-130, now in Sinus rhythm with low voltage at 90/min. Anuric / no urine output reported overnight, positive fluid balance of 2.8 L from time of admission till now. No fever spikes last 24H, still hypothermic with Temp at 94F with Tanika-Huggar blanket on. ROS: No other pertinent negs or positive on 10+ system review obtainable due to lethargic status Other PMSFH: All other Nursing and physician documentation reviewed to date; no new pertinent info noted relevant to current medical problems. EXAM- HEENT: no icterus, pupils equal, 4 mm and sluggish, no gaze preference, no eye opening to pain, midline, no nystagmus NECK: no visible JVD, supple, carotids equal upstroke bilat/no bruits, R IJ TLC intatc CHEST: decreased BS bases, no wheezes audible. HEART: irregular, distant, tachy S1S2, no murmur audible, no rubs. ABD: soft, +distention with ascites and severe anasarca of abdominal wall, no focal tenderness, BS hypoactive, no rebound. EXT: + anasarca with +++ edema UEs and LEs, and arms; deep sacral ulcer 5x10cm, R buttock DTI and Left heel ulcer. NEURO: flaccid x 4 extremities, no tone SKIN: no rashes, cool, no mottling, +anasarca LABS: WBC= 51.4 HGB= 11.2 PLTs = 396K 7.00/24/96 on BIPAP 12/7, 100% Na= 133 K= 4.2 Cl= 107 HCO3= 9 BUN/Cr= 28/1.9 BS= 140 EKG: sinus 90/min, severe low voltage, old IWMI and possible AWMI. CXR: (my interp)- 6AM film shows a poor inspiratory film, with RUL and congestive interstitial changes, left hemidipahrgam is not visible. Repeat film post intubation shows ETT down R mainstem bronchus, opacification of left lung, and unchanged congestive changes. IMPRESSION / MAJOR PROBLEMS NOW: 1. Septic shock, R/o bacteremia, etiology: Lung, biliary tract, and/ or skin with mu;tile decubiti. 2. Refractory shock state may be combination of Hypovolemia, Severe Sepsis, metabolic failure from severe Hypothyroidism- Hypoadreanlism / Myxedema, and or Cardiogenic from pericardial effusion, to r/o cardiac tamponade. 3. Azotemia, r/o PANTERA / ATN with Hypovolemia 4. Acute Resp failure ( hypoxemic) 2 Pulm Vasc congestion, r/o AMI / systolic CHF, and bilateral pneumonia 5. h/o Dementia on Zoloft and Risperdal. PLAN: 1. Living Will presented by daughter; states she is the health care proxy and is requesting all aggressive measures still be performed. Await PMDs assessment of patients present status as Living Will mandates 2 physicians to deem patient is in an irreversible, poor prognostic state before care is withdrawn. Daughter has been informed by me regarding present poor clinical condition and refractoriness to multiple vasopressors and persistent shock state, and recurrent bradycardia and asystole is imminent in the presence of multi-organ failure: Lkbii-Onyn-Emcoar-Endocrine systems. 2. VBG shock panel ordered. 3. Increase IV Thyroxine, add steroids. 4. Add Vasopressin. 5. Empiric abx coverage noted with Clinda / Sary/ Unsyn. 6. Hold anti-psychotics. 7. ECHO. 8. Change IVFs to administer a higher amount of alkalinized fluids for now. 9. Consider Wound consult / Gen Surg eval for decubitus debridement. 10. ETT re-positioned 7 cm higher during Code Blue. 11. Obtain other digital marketing consultant opinions from Pulm, Endocrine, Nephrology, Cardio. 12. ID recommendations reviewed. Time spent with this patient did not overlap with any other provider's medical or critical care time. Additionally the code selected for the services rendered in this note includes the time spent: talking to the patients family, associated physicians and reviewing hospital data/results not listed here which extended to a total of 45 minutes of critical care. 10/04/18 10:28
[2018-10-04 11:11] VITALS: O2SAT 74
[2018-10-04] MEDS: Clindamycin 600mg/50ml D5W 600 MG/50 ML VIAL IVPB SCH (11:33)
--- NOTE | 2018-10-04 13:16 | CP.CCUPN ---
CCU Subjective - Physician Review Subjective (Free Text): 2nd Code Blue: Bradycardia noted leading to loss of palpable carotid artery and femoral artery pulses. CPR and ACLS started immediately. High quality chest compressions maintained. Several rounds of meds administered including epi/ Atropine and supplemental bicarbonate for known severe acidosis. Vasopressors maintained at their respective max dose infusions. Rhythm restored to sinus mechanism at 90 /min with palpable pulses. Decision made to attempt bedside emergent pericardiocentesis given note of extreme low voltage on the monitor and as evidenced on last EKG post 1st Code Blue. ECHO has yet to be performed or available. 20gauge 5inch spinal needle used under aseptic conditions to enter the subxiphoid space and initially clear, clear, serous pleural fluid obtained. A second attempt was made and approx. 10 ml or dark serosangiuinous fluid obtained that did not clot and had a foamy consistency upon exiting the syringe. No change in rhythm noted, and pulses remained palpable, but no firm NiBP reading could be obtained. After completing and ending attempts at further collection of suspected tamponade effect by pericardial fluid, pulses lost again. Vicente discussion made between myself and patients who arrived at the bedside. Discussed elements of her Living Will and given her irreversible condition and 2nd Code blue, decided to follow and respect patients wishes as directed by her in the Living Will to discontinue aggressive supportive measures and to allow her to naturally and pain free. Formal DNR orders issued, and attention now turned towards comfort measures.
--- NOTE | 2018-10-04 13:45 | CP.PCM.PRO ---
Pronouncement of Note - Clinical Findings Physical Exam: No Response Verbal/Painful Stimuli, Absent Peripheral Puls es{Carotid & Femoral}, Absent Heart & Breath Sounds, No Pupillary Light Reflex, No Corneal Reflex, Pupils Fixed & Dilated, Absence of Vital Signs - Pronouncement Time Time of Pronouncement of : 13:20 - Notifications Pronouncement Notifications: Family Notified, Atending Notified Paper Counter Notified: No - Autopsy Autopsy Requested: No - [place] [id number] Additional Comments: DNR requested by as per patient's Living Will.
[2018-10-04 14:34] VITALS: PULSE 60; TEMP 96.4
--- NOTE | 2018-10-04 19:32 | CARD ---
APPROVED REPORT Date of service: 10/04/2018 EKG Measurement Heart [id number] <Conclusion> Normal sinus rhythm Low voltage QRS Cannot rule out Inferior infarct, age undetermined Possible Anterolateral infarct, age undetermined Abnormal ECG
[2018-10-05] MEDS ORDERED: Levothyroxine 100 mcg (0.1 mg) Inj IVP SCH (06:30)
--- NOTE | 2018-10-05 11:25 | RAD ---
Date of service: 10/04/2018 HISTORY: bipap COMPARISON: Frontal chest radiograph 10/03/2018 3:13 p.m.. TECHNIQUE: 1 view obtained. FINDINGS: LUNGS: Right internal jugular central venous line unchanged with tip terminating the right atrium once again. Patchy infiltrates are now added lateral portion of the right upper lobe with persistent if not increased mid inferior left-sided pulmonary opacity. Limited patchy density right infrahilar space remains questioned. PLEURA: Trace left pleural effusion identified. None identified at the right. No pneumothorax bilaterally. CARDIOVASCULAR: Calcific atherosclerotic changes are seen related to the thoracic aorta. Normal cardiac size. No pulmonary vascular congestion. OSSEOUS STRUCTURES: No significant abnormalities. VISUALIZED UPPER ABDOMEN: Normal. OTHER FINDINGS: None. IMPRESSION: Interval worsening of right-sided infiltrate now identified primarily at the right upper lobe with persistent airspace disease in the right infrahilar space. No interval change in mid to inferior left-sided pulmonary consolidation or atelectasis. Trace of pleural effusion not excluded.
--- NOTE | 2018-10-06 02:28 | CP.PCM.PN ---
Subjective - Date & Time of Evaluation Date of Evaluation: 10/04/18 Time of Evaluation: 07:30 - Subjective Subjective: Pt seen and assessed at bedside. Critically unstable, BP 40/17 on monitor, and maxed out on vasopressors. The pt is currently intubated and reflexes are not intact. Remains full code, as per staff, the pt's daughter wishes to proceed wi th all life saving measures. Subjective Review of Systems: Unobtainable as the patient is currently intubated and unresponsive. Objective Vital Signs critically unstable. Appears: Uncomfortable, No Acute Distress. Head Exam: NORMAL INSPECTION, normocephalic. Eye Exam: Pupils non-reactive. Respiratory Exam: Mechanically ventilated, rate controlled. Cardiovascular Exam: Pulse weak and thready, sinus bradycardia noted. GI & Abdominal Exam: Soft, distended. Neurological Exam: Unresponsive to any type of stimuli. Psychiatric exam:Unresponsive. Skin Exam: Pale, skin cool to touch. Assessment/Impression/Plan: -At this time, the prognosis remains very poor. -Pt is full code. -Mechanically ventilated and maxed out on all vasopressors. -Sepsis possibly secondary to deep sacral wound/bacteremia. -Respiratory failure from shock and pulmonary vascular congestion. 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 -consults appreciated input. Objective - Vital Signs/Intake and Output Vital Signs (last 24 hours): Temp Pulse Resp BP Pulse Ox 96.4 F L 60 12 0/0 L 74 L 10/04/18 12:00 10/04/18 12:00 10/04/18 12:00 10/04/18 12:00 10/04/18 11:00 - Labs Labs: 10/04/18 05:38 10/04/18 05:38 Assessment and Plan (1) Respiratory failure Status: Acute (2) Bacteremia due to Gram-negative bacteria Status: Acute (3) Sacral decubitus ulcer Status: Acute (4) Sepsis Status: Acute
--- NOTE | 2018-10-06 13:38 | CP.PCM.HP ---
History of Present Illness - History of Present Illness History of Present Illness: HPI: 73 y/o Female pt presented to the ED with hypotension and labored respirations. As per EMS, she was placed on a BIPAP and remained hypotensive with labored breathing. Workup found that she was septic, possibly from deep sacral wound (unknown stage). The pt was transferred to ICU, where she is currently intubated and on vasopressors. Prognosis is poor. Pt seen and assessed at bedside this morning. Critically unstable, BP 40/17 on monitor. The pt is mechanically ventilated and reflexes are not intact. Remains full code, as per staff, the pt's daughter wishes to proceed with all life saving measures. PMH: Anxiety, Arthritis, Depression, Gastritis, HTN, Pneumonia, Rheumatoid Arthritis, Schizophrenia. PSH: none. Allergies: NKDA. Subjective Review of Systems: Unobtainable as the patient is currently intubated and unresponsive. Objective Vital Signs critically unstable. Appears: Uncomfortable, No Acute Distress. Head Exam: NORMAL INSPECTION, normocephalic. Eye Exam: Pupils non-reactive. Respiratory Exam: Mechanically ventilated, rate controlled. Cardiovascular Exam: Pulse weak and thready, sinus bradycardia noted. GI & Abdominal Exam: Soft, distended. Neurological Exam: Unresponsive to any type of stimuli. Psychiatric exam:Unresponsive. Skin Exam: Pale, skin cool to touch. Assessment/Impression/Plan: -At this time, the prognosis remains very poor. -Pt is full code. -Mechanically ventilated and maxed out on all vasopressors. -Sepsis possibly secondary to deep sacral wound/bacteremia. -Respiratory failure from shock and pulmonary vascular congestion. 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 -consults appreciated input. Present on Admission - Present on Admission Any Indicators Present on Admission: Yes Decubitus Ulcer Stage: Unstageable Past Patient History - Infectious Disease Hx of Infectious Diseases: None - Past Medical History & Family History Past Medical History?: Yes - Past Social History Smoking Status: Never Smoked - CARDIAC Hx Congestive Heart Failure: No Hx Hypercholesterolemia: No Hx Hypertension: Yes - PULMONARY Hx Asthma: Yes Hx Chronic Obstructive Pulmonary Disease (COPD): No Hx Pneumonia: Yes - NEUROLOGICAL HX Cerebrovascular Accident: No - HEENT Hx HEENT Problems: No - RENAL Hx Chronic Kidney Disease: No - ENDOCRINE/METABOLIC Hx Hypothyroidism: No - HEMATOLOGICAL/ONCOLOGICAL Hx AIDS: No Hx Human Immunodeficiency Virus (HIV): No - INTEGUMENTARY Hx Dermatological Problems: Yes Other/Comment: perineal excoriation - MUSCULOSKELETAL/RHEUMATOLOGICAL Hx Arthritis: Yes Hx Falls: Yes Hx Rheumatoid Arthritis: Yes - GASTROINTESTINAL Hx Gastritis: Yes - GENITOURINARY/GYNECOLOGICAL Hx Genitourinary Disorders: No Hx Urinary Tract Infection: Yes - PSYCHIATRIC Hx Anxiety: Yes Hx Depression: Yes Hx Schizophrenia: Yes Hx Substance Use: No - SURGICAL HISTORY Hx Surgeries: Yes Hx Cataract Extraction: Yes Hx Joint Replacement: Yes (bilateral TKR) Hx Orthopedic Surgery: Yes Other/Comment: bilateral knee surgery - ANESTHESIA Hx Anesthesia: Yes Hx Anesthesia Reactions: No Hx Malignant Hyperthermia: No Meds Allergies/Adverse Reactions: Allergies Allergy/AdvReac Type Severity Reaction Status Date / Time No Known Allergies Allergy Verified 05/26/16 15:43 Results - Vital Signs Recent Vital Signs: Last Vital Signs Temp 96.4 F L 10/04/18 12:00 Pulse 60 10/04/18 12:00 Resp 12 10/04/18 12:00 BP 0/0 L 10/04/18 12:00 Pulse Ox 74 L 10/04/18 11:00 - Labs Result Diagrams: 10/04/18 05:38 10/04/18 05:38 Assessment & Plan (1) Respiratory failure Status: Acute (2) Bacteremia due to Gram-negative bacteria Status: Acute (3) Sacral decubitus ulcer Status: Acute (4) Sepsis Status: Acute
== END 2018-10-04 13:20 | DRG 871 ==
LOC: H.ER 12:22 → H.ERHOLD 12:46 → H.ICU/CCU 16:06
PROVIDERS: ADMIT Family Medicine; ATTEND Family Medicine
PROC: 5A1935Z Respiratory Ventilation, Less than 24 Consecutive Hours (ICD-10-PCS; principal; 2018-10-04)
PROC: 0BH17EZ Insertion of Endotracheal Airway into Trachea, Via Natural or Artificial Opening (ICD-10-PCS; 2018-10-04)
DX: A41.9 Sepsis, unspecified organism (principal); L89.153 Pressure ulcer of sacral region, stage 3; G93.41 Metabolic encephalopathy; J18.9 Pneumonia, unspecified organism; J96.01 Acute respiratory failure with hypoxia; J96.02 Acute respiratory failure with hypercapnia; N39.0 Urinary tract infection, site not specified; R18.8 Other ascites; E87.2 Acidosis; I13.0 Hypertensive heart and chronic kidney disease with heart failure and stage 1 through stage 4 chronic kidney disease, or unspecified chronic kidney disease; I50.22 Chronic systolic (congestive) heart failure; J44.0 Chronic obstructive pulmonary disease with (acute) lower respiratory infection; R65.20 Severe sepsis without septic shock; B96.89 Other specified bacterial agents as the cause of diseases classified elsewhere; E11.22 Type 2 diabetes mellitus with diabetic chronic kidney disease; E86.1 Hypovolemia; R68.0 Hypothermia, not associated with low environmental temperature; E78.5 Hyperlipidemia, unspecified; K74.60 Unspecified cirrhosis of liver; F32.9 Major depressive disorder, single episode, unspecified; F20.9 Schizophrenia, unspecified; I48.91 Unspecified atrial fibrillation; J84.10 Pulmonary fibrosis, unspecified; K29.70 Gastritis, unspecified, without bleeding; M06.9 Rheumatoid arthritis, unspecified; N18.9 Chronic kidney disease, unspecified; Z99.81 Dependence on supplemental oxygen; Z66 Do not resuscitate; F41.9 Anxiety disorder, unspecified; Z96.653 Presence of artificial knee joint, bilateral; Z74.01 Bed confinement status; Z79.82 Long term (current) use of aspirin; Z87.01 Personal history of pneumonia (recurrent); Z87.440 Personal history of urinary (tract) infections; Z87.891 Personal history of nicotine dependence; Z79.84 Long term (current) use of oral hypoglycemic drugs